=== PATIENT | female | born 1955 | race Caucasian/White ===

== ENCOUNTER 2017-10-10 11:45 | Day surgery (SDC) | payer OTHER ==
[~2017-10-10] VITALS: Ht 165.1 cm; Wt 84.8 kg
[~2017-10-10 11:45] MED LIST: ACET325 PO; ALEN70 PO; Advil200 M1 PO; CALC1.25T PO; CLARITIN10 MG PO; ESTNOR PO; Estrace Vagin42.5 GM PV; GLUCOSAMINE PO; LISI5 PO; LORPSEER24 PO; MULVITMIND PO; OMEP20ER PO; OMEPRAZOLE MAGN20 MG PO
== END 2017-10-10 13:50 | disposition home or self-care (01) ==
LOC: ORSCSDS 11:45
PROVIDERS: Surgery
PROC: 0DJD8ZZ Inspection of Lower Intestinal Tract, Via Natural or Artificial Opening Endoscopic (ICD-10-PCS; principal; 2017-10-10 13:00)
DX: Z12.11 Encounter for screening for malignant neoplasm of colon (principal); E21.3 Hyperparathyroidism, unspecified; I10 Essential (primary) hypertension; E78.5 Hyperlipidemia, unspecified; Z79.899 Other long term (current) drug therapy
CPT/HCPCS: J0330; J1980; J2405; J7120

== ENCOUNTER 2022-10-12 06:09 | Day surgery (SDC) | payer OTHER ==
[~2022-10-12] VITALS: Ht 165.1 cm; Wt 81.8 kg
--- NOTE | 2022-10-12 07:06 | NUR ---
10/12/22 0706 Dolores Sutherland CALL LIGHT WITHIN REACH. NO FURTHER QUESTIONS.
--- NOTE | 2022-10-12 08:00 | NUR ---
10/12/22 0800 Cristiane Ricketts 1MG OF EPI ADDED TO THE FIRST BAG OF LR PER ORDER FOR IRRIGATION AT [facility]
[2022-10-12 08:42] VITALS: BP 110/78
--- NOTE | 2022-10-12 08:57 | NUR ---
10/12/22 0857 Daxa Fields PATIENT IN RECLINER DRINKING WATER, EATING SALTINES. AT BEDSIDE. POLAR JOYCE ON AND WORKING. DENIES ANY PAIN OR NAUSEA.
== END 2022-10-12 09:42 | disposition home or self-care (01) ==
LOC: ORSCSDS 06:09
PROVIDERS: Orthopaedic Surgery
PROC: 0SBD4ZZ Excision of Left Knee Joint, Percutaneous Endoscopic Approach (ICD-10-PCS; principal; 2022-10-12 07:30)
DX: S83.242A Other tear of medial meniscus, current injury, left knee, initial encounter (principal); K21.9 Gastro-esophageal reflux disease without esophagitis; I10 Essential (primary) hypertension; Z79.899 Other long term (current) drug therapy
CPT/HCPCS: A9270; J0171; J0690; J1100; J1885; J2370; J2405; J2704; J3010; J7120